=== PATIENT | female | born 1945 | race Caucasian/White ===

== ENCOUNTER 2017-03-14 06:33 | Day surgery (SDC) | payer MEDICARE, BC ==
--- NOTE | ~2017-03-14 | EGD ---
EGD REPORT [facility] [address] [id number] NAME: DEBORA RAMIREZ : 47 STATUS : REG [facility]#: [id number] AGE: 71 ADM/REG DATE : 03/14/17 MR#: [id number] REPORT SERV DATE: 03/14/17 DICTATED BY: DIMPLE GRAHAM DATE: 03/14/17 REPORT STATUS : Draft [facility] DATE: 03/14/17 [facility] Patient Name: Debora Ramirez Date of : 1945 Attending MD: HAMZAH GRAHAM MD Procedure Date No Time: 03/14/2017 Procedure: Colonoscopy Indications: High risk colon cancer surveillance: Personal history of colonic polyps Referring MD: IGGY ACEVES MD Medicines: See the Anesthesia note for documentation of the administered medications Complications: No immediate complications. Estimated blood loss: None. Procedure: Pre-Anesthesia Assessment: - ASA Grade Assessment: III - A patient with severe systemic disease. - Prior to the procedure, a History and Physical was performed, and patient medications and allergies were reviewed. The patient's tolerance of previous anesthesia was also reviewed. The risks and benefits of the procedure and the sedation options and risks were discussed with the patient. All questions were answered, and informed consent was obtained. Prior Anticoagulants: The patient has taken no previous anticoagulant or antiplatelet agents. After reviewing the risks and benefits, the patient was deemed in satisfactory condition to undergo the procedure. After I obtained informed consent, the scope was passed under direct vision. Throughout the procedure, the patient's blood pressure, pulse, and oxygen saturations were monitored continuously. The PCF [id number] was introduced through the anus and advanced to the terminal ileum. The ileocecal valve, appendiceal orifice, terminal ileum and rectum were photographed. The entire colon was examined. The colonoscopy was performed without difficulty. The patient tolerated the procedure well. The quality of the bowel preparation was adequate. Findings: The perianal and digital rectal examinations were normal. The terminal ileum appeared normal. A sessile polyp was found in the sigmoid colon. The polyp was 3 mm in size. The polyp was removed with a cold biopsy forceps. Resection and retrieval were complete. Site of previous polypectomy identified and appears fine EGD REPORT [address] [address] NAME: DEBORA RAMIREZ : [birth year] STATUS : REG [facility]#: [id number] AGE: 71 ADM/REG DATE : 03/14/17 MR#: [id number] REPORT SERV DATE: 03/14/17 DICTATED BY: DIMPLE GRAHAM DATE: 03/14/17 REPORT STATUS : Draft [facility] DATE: 03/14/17 Non-bleeding internal hemorrhoids were found during retroflexion and were Grade I (internal hemorrhoids that do not prolapse). Impression: - The examined portion of the ileum was normal. - One 3 mm polyp in the sigmoid colon. Resected and retrieved. - Site of previous polypectomy identified and appears fine - Non-bleeding internal hemorrhoids. Recommendation: - Patient has a contact number available for emergencies. The signs and symptoms of potential delayed complications were discussed with the patient. Return to normal activities tomorrow. Written discharge instructions were provided to the patient. - Regular diet. - Discharge patient to home. - Continue present medications. - Await pathology results. - Repeat colonoscopy in 5 years for surveillance. Procedure Code(s): --- Professional --- 47566, Colonoscopy, flexible, proximal to splenic flexure; with biopsy, single or multiple Diagnosis Code(s): --- Professional --- K64.0, First degree hemorrhoids D12.5, Benign neoplasm of sigmoid colon Z86.010, Personal history of colonic polyps CPT copyright 2013 [employer]. All rights reserved. The codes documented in this report are preliminary and upon restaurant recruiter review may be revised to meet current compliance requirements. HAMZAH GRAHAM MD 03/14/2017 9:33 AM This report has been signed electronically. Number of Addenda: 0 Note Initiated On: 03/14/2017 9:08 AM Scope Withdrawal Time 0 hours 7 minutes 31 seconds [address] [id number]
[~2017-03-14 06:33] MED LIST: BRINT10T PO; BUSPAR5 PO; CALTRA600D PO; CLEARLAX PO; COZ25 PO; COZAAR100 MG PO; CYTO25 PO; LANTUS SC; LANTUSCART SC; LEVOTHYROXIN200 MCG PO; LEVOTHYROXIN25 MCG PO; LIPITOR20 PO; MULTIPLE VIT PO; PRILO PO; RISP2 PO; TRAZ100 PO; TRAZ50 PO; VITAMIN D31000 UNIT PO; WELLXL300 PO
== END 2017-03-14 23:59 | disposition home or self-care (01) ==
LOC: DMU 06:33
PROVIDERS: Internal Medicine Gastroenterology
PROC: 0DBN8ZZ Excision of Sigmoid Colon, Via Natural or Artificial Opening Endoscopic (ICD-10-PCS; principal; 2017-03-14 08:30)
DX: Z12.11 Encounter for screening for malignant neoplasm of colon (principal); D12.5 Benign neoplasm of sigmoid colon; I10 Essential (primary) hypertension; K64.0 First degree hemorrhoids; Z86.010 Personal history of colon polyps; E66.01 Morbid (severe) obesity due to excess calories; F31.9 Bipolar disorder, unspecified; E11.9 Type 2 diabetes mellitus without complications; G47.33 Obstructive sleep apnea (adult) (pediatric); E03.9 Hypothyroidism, unspecified; Z79.899 Other long term (current) drug therapy; Z79.84 Long term (current) use of oral hypoglycemic drugs; Z88.6 Allergy status to analgesic agent
CPT/HCPCS: 82962; 88305